=== PATIENT | male | born 1955 | race Caucasian/White ===

== ENCOUNTER 2021-05-25 18:34 | Inpatient (IN) ==
[2021-05-25 20:18] LABS: INR 1.2 (0.86-1.15)
[2021-05-25 20:23] LABS: Hematocrit 33 % (42-52); Hemoglobin 11.2 g/dL (14.0-18.0); Mean Corpuscular HGB Conc 34 g/dL (31-36); Mean Corpuscular Hemoglobin 31 pg (27-31); Mean Corpuscular Volume 91 fL (80-94); Red Blood Count 3.61 10^6 /uL (4.18-5.48); Red Cell Distribution Width 18 % (10-15); White Blood Count 3.2 10^3/uL (3.5-10.8)
[2021-05-25 20:36] LABS: High Sens Troponin Baseline 15 pg/mL (<20)
[2021-05-25 20:40] LABS: ABS Eosinophils 0.2 10^3/ul (0-0.6); ABS Lymphocytes 0.6 10^3/ul (1.0-4.8); ABS Monocytes 0.5 10^3/ul (0-0.8); ABS Neutrophils 1.9 10^3/ul (1.5-7.7); Eosinophil % 5.4 %; Lymphocyte % 17.6 %; Nucleated Red Blood Cells % 0.1; Platelet Count Platelets clumped. 10^3/uL (150-450)
[2021-05-25 21:02] LABS: ALT 23 U/L (7-52); AST 49 U/L (13-39); Albumin/Globulin Ratio 1.2 (1-3); Alcohol, S < 13 mg/dL (<13); Alkaline Phosphatase 99 U/L (35-149); Anion Gap 7 mmol/L (2-11); Blood Urea Nitrogen 71 mg/dL (6-24); CO2 Carbon Dioxide 33 mmol/L (22-32); Calcium 9.4 mg/dL (8.6-10.3); Chloride 98 mmol/L (101-111); Globulin 3.4 g/dL (2-4); Glucose 117 mg/dL (70-100); Potassium 4.1 mmol/L (3.5-5.0); Sodium 138 mmol/L (135-145); Total Protein 7.4 g/dL (6.4-8.9); eGFR CKD-EPI 19.7 (>60)
[2021-05-25 21:05] LABS: Urine Appearance Clear; Urine Bilirubin Negative (Negative); Urine Blood Negative (Negative); Urine Color Yellow; Urine Glucose Negative (Negative); Urine Ketones Negative (Negative); Urine Nitrite Negative (Negative); Urine Protein Negative (Negative); Urine Urobilinogen Negative (Negative)
[2021-05-25 21:33] LABS: High Sensitivity Troponin 1 Hr 14 pg/mL (<20)
[2021-05-25] MEDS: Lactated Ringers 1000 ml BAG 1,000 ML IV SCH ×2 (22:38→23:42)
[2021-05-26 03:27] LABS: Blood Urea Nitrogen 66 mg/dL (6-24); CO2 Carbon Dioxide 32 mmol/L (22-32); Calcium 9.1 mg/dL (8.6-10.3); Chloride 101 mmol/L (101-111); Glucose 61 mg/dL (70-100); Sodium 139 mmol/L (135-145); eGFR CKD-EPI 23.7 (>60)
[2021-05-26 03:30] LABS: Anion Gap 6 mmol/L (2-11)
[2021-05-26] MEDS ORDERED: Lactulose 30 ml UDC PO ONE (04:53)
[2021-05-26] MEDS ORDERED: Ondansetron 4 mg VIAL 2 MG/ML 2 ml VIAL IV PRN (05:21)
[2021-05-26] MEDS ORDERED: NS 0.9% 1000 ml BAG 1,000 ML IV SCH ×2 (05:30→17:50)
[2021-05-26] MEDS ORDERED: Albuterol HFA INHALER 8 gm MDI INH PRN (05:34)
[2021-05-26] MEDS ORDERED: Dextrose 50% Syringe 50 ml 25 GM/50 ML SYRINGE IV PUSH PRN (05:55)
[2021-05-26] MEDS ORDERED: Dextrose 50% VIAL 50 ml IV ONE (05:57)
[2021-05-26] MEDS: Lactulose 30 ml UDC PO SCH ×5 (08:16→22:35)
[2021-05-26] MEDS: Timolol 0.5% OPTH.SOL BTL BOTH EYES SCH (08:17)
[2021-05-26] MEDS: Venlafaxine XR 75 mg PO SCH (08:19)
[2021-05-26 10:09] LABS: Hematocrit 31 % (42-52); Hemoglobin 10.6 g/dL (14.0-18.0); Mean Corpuscular HGB Conc 34 g/dL (31-36); Mean Corpuscular Hemoglobin 31 pg (27-31); Mean Corpuscular Volume 90 fL (80-94); Red Blood Count 3.44 10^6 /uL (4.18-5.48); Red Cell Distribution Width 18 % (10-15)
[2021-05-26 10:23] LABS: INR 1.22 (0.86-1.15)
[2021-05-26 10:35] LABS: ABS Eosinophils 0.2 10^3/ul (0-0.6); ABS Lymphocytes 0.5 10^3/ul (1.0-4.8); ABS Monocytes 0.5 10^3/ul (0-0.8); ABS Neutrophils 1.9 10^3/ul (1.5-7.7); Eosinophil % 5.6 %; Lymphocyte % 15.4 %; Mean Platelet Volume 9.5 fL (7.4-10.4); Platelet Count 36 10^3/uL (150-450)
[2021-05-26 10:46] LABS: Calcium 9.6 mg/dL (8.6-10.3); Potassium 4.3 mmol/L (3.5-5.0); eGFR CKD-EPI 26.4 (>60)
[2021-05-26] MEDS: Insulin GLARGINE 100 un/ml 10 ml VIAL SUBCUT SCH (22:31)
[2021-05-27] MEDS: Lactulose 30 ml UDC PO SCH ×6 (02:02→21:11)
[2021-05-27 05:32] LABS: ABS Eosinophils 0.1 10^3/ul (0-0.6); ABS Lymphocytes 0.4 10^3/ul (1.0-4.8); ABS Monocytes 0.5 10^3/ul (0-0.8); ABS Neutrophils 2.2 10^3/ul (1.5-7.7); Eosinophil % 4.2 %; Hematocrit 31 % (42-52); Hemoglobin 10.4 g/dL (14.0-18.0); Lymphocyte % 13.1 %; Mean Corpuscular HGB Conc 34 g/dL (31-36); Mean Corpuscular Hemoglobin 31 pg (27-31); Mean Corpuscular Volume 91 fL (80-94); Mean Platelet Volume 8.8 fL (7.4-10.4); Nucleated Red Blood Cells % 0.1; Platelet Count 34 10^3/uL (150-450); Red Blood Count 3.38 10^6 /uL (4.18-5.48); Red Cell Distribution Width 18 % (10-15); White Blood Count 3.4 10^3/uL (3.5-10.8)
[2021-05-27 06:13] LABS: ALT 22 U/L (7-52); AST 46 U/L (13-39); Albumin 3.7 g/dL (3.2-5.2); Albumin/Globulin Ratio 1.1 (1-3); Alkaline Phosphatase 89 U/L (35-149); Anion Gap 7 mmol/L (2-11); Blood Urea Nitrogen 52 mg/dL (6-24); CO2 Carbon Dioxide 28 mmol/L (22-32); Calcium 9.4 mg/dL (8.6-10.3); Chloride 106 mmol/L (101-111); Globulin 3.3 g/dL (2-4); Glucose 110 mg/dL (70-100); Potassium 3.9 mmol/L (3.5-5.0); Sodium 141 mmol/L (135-145); eGFR CKD-EPI 34.5 (>60)
[2021-05-27] MEDS: Venlafaxine XR 75 mg PO SCH (09:03)
[2021-05-27] MEDS: Insulin GLARGINE 100 un/ml 10 ml VIAL SUBCUT SCH ×2 (09:05→21:33)
[2021-05-27] MEDS: Timolol 0.5% OPTH.SOL BTL BOTH EYES SCH (09:05)
[2021-05-27] MEDS: Albumin Human 5% 12.5 GM/250 ML BTL IV SCH ×2 (11:35→13:00)
[2021-05-27 13:51] LABS: % Iron Saturation 39 % (15-55); Iron 113 ug/dL (50-212); Total Iron Binding Capacity 287 mcg/dL (250-450); Transferrin 205 mg/dL (203-362); Unsaturated Iron Binding 174 ug/dL
[2021-05-27 14:08] LABS: Ferritin 316.4 ng/mL (24-336)
[2021-05-27 14:11] LABS: Folate > 20.00 ng/mL (5.90-24.80)
[2021-05-27 14:13] LABS: Vitamin B12 1337 pg/mL (180-914)
[2021-05-27 17:15] LABS: Calcium 9.6 mg/dL (8.6-10.3); Potassium 3.9 mmol/L (3.5-5.0); eGFR CKD-EPI 39.7 (>60)
[2021-05-27] MEDS: NS 0.9% 1000 ml BAG 1,000 ML IV SCH (21:11)
[2021-05-28] MEDS: Lactulose 30 ml UDC PO SCH ×11 (02:22→21:59)
[2021-05-28] MEDS: NS 0.9% 1000 ml BAG 1,000 ML IV SCH (03:15)
[2021-05-28 05:55] LABS: ABS Eosinophils 0.1 10^3/ul (0-0.6); ABS Lymphocytes 0.4 10^3/ul (1.0-4.8); ABS Monocytes 0.7 10^3/ul (0-0.8); ABS Neutrophils 2.7 10^3/ul (1.5-7.7); Eosinophil % 3.7 %; Hematocrit 30 % (42-52); Hemoglobin 10.5 g/dL (14.0-18.0); Lymphocyte % 10.9 %; Mean Corpuscular HGB Conc 34 g/dL (31-36); Mean Corpuscular Hemoglobin 32 pg (27-31); Mean Corpuscular Volume 91 fL (80-94); Mean Platelet Volume 9.5 fL (7.4-10.4); Nucleated Red Blood Cells % 0.1; Platelet Count 31 10^3/uL (150-450); Red Blood Count 3.32 10^6 /uL (4.18-5.48); Red Cell Distribution Width 18 % (10-15)
[2021-05-28 06:08] LABS: Calcium 9.4 mg/dL (8.6-10.3); Potassium 3.9 mmol/L (3.5-5.0)
[2021-05-28] MEDS ORDERED: Lactated Ringers 1000 ml BAG 1,000 ML IV SCH (07:00)
[2021-05-28] MEDS: Venlafaxine XR 75 mg PO SCH (07:56)
[2021-05-28] MEDS: Albumin Human 5% 12.5 GM/250 ML BTL IV SCH ×2 (07:57→10:39)
[2021-05-28] MEDS: Insulin GLARGINE 100 un/ml 10 ml VIAL SUBCUT SCH ×2 (08:28→20:26)
[2021-05-28] MEDS: Timolol 0.5% OPTH.SOL BTL BOTH EYES SCH (09:40)
[2021-05-28 15:13] LABS: Calcium 9.7 mg/dL (8.6-10.3); Potassium 4.1 mmol/L (3.5-5.0); eGFR CKD-EPI 58.8 (>60)
[2021-05-29] MEDS: Lactulose 30 ml UDC PO SCH ×8 (00:19→14:55)
[2021-05-29 07:14] LABS: ABS Eosinophils 0.2 10^3/ul (0-0.6); ABS Lymphocytes 0.5 10^3/ul (1.0-4.8); ABS Monocytes 0.8 10^3/ul (0-0.8); ABS Neutrophils 3.3 10^3/ul (1.5-7.7); Albumin 4.5 g/dL (3.2-5.2); Albumin/Globulin Ratio 1.3 (1-3); Calcium 10.4 mg/dL (8.6-10.3); Eosinophil % 4.5 %; Globulin 3.5 g/dL (2-4); Hematocrit 34 % (42-52); Hemoglobin 11.5 g/dL (14.0-18.0); Lymphocyte % 10.8 %; Mean Corpuscular HGB Conc 34 g/dL (31-36); Mean Corpuscular Hemoglobin 31 pg (27-31); Mean Corpuscular Volume 92 fL (80-94); Mean Platelet Volume 9.6 fL (7.4-10.4); Nucleated Red Blood Cells % 0.1; Platelet Count 38 10^3/uL (150-450); Potassium 3.8 mmol/L (3.5-5.0); Red Cell Distribution Width 18 % (10-15); Total Bilirubin 2.9 mg/dL (0.2-1.0); White Blood Count 4.9 10^3/uL (3.5-10.8); eGFR CKD-EPI 71.4 (>60)
[2021-05-29] MEDS: Venlafaxine XR 75 mg PO SCH (08:29)
[2021-05-29] MEDS: Insulin GLARGINE 100 un/ml 10 ml VIAL SUBCUT SCH ×2 (08:30→20:57)
[2021-05-29] MEDS: Timolol 0.5% OPTH.SOL BTL BOTH EYES SCH (08:30)
[2021-05-29] MEDS ORDERED: D5W 500 ml BAG 500 ML IV SCH (09:00)
[2021-05-29] MEDS ORDERED: D5W 1/2 NS 1000 ml BAG 1,000 ML IV SCH (09:00)
[2021-05-29 14:50] LABS: Calcium 10.3 mg/dL (8.6-10.3); Potassium 3.9 mmol/L (3.5-5.0); eGFR CKD-EPI 69.2 (>60)
[2021-05-29] MEDS ORDERED: D5W IV ONE (17:12)
[2021-05-29 21:30] LABS: Calcium 10.7 mg/dL (8.6-10.3); Potassium 3.8 mmol/L (3.5-5.0); eGFR CKD-EPI 69.9 (>60)
[2021-05-30] MEDS ORDERED: D5W 1000 ml BAG 1,000 ML IV SCH (01:00)
[2021-05-30 06:56] LABS: Hematocrit 37 % (42-52); Hemoglobin 12.3 g/dL (14.0-18.0); Mean Corpuscular HGB Conc 34 g/dL (31-36); Mean Corpuscular Hemoglobin 31 pg (27-31); Mean Corpuscular Volume 93 fL (80-94); Mean Platelet Volume 9.1 fL (7.4-10.4); Platelet Count 41 10^3/uL (150-450); Red Blood Count 3.94 10^6 /uL (4.18-5.48); Red Cell Distribution Width 18 % (10-15); White Blood Count 5.3 10^3/uL (3.5-10.8)
[2021-05-30 07:18] LABS: Calcium 10.2 mg/dL (8.6-10.3); Potassium 4.3 mmol/L (3.5-5.0)
[2021-05-30 07:24] LABS: eGFR CKD-EPI 70.6 (>60)
[2021-05-30] MEDS: Insulin GLARGINE 100 un/ml 10 ml VIAL SUBCUT SCH ×2 (08:41→21:18)
[2021-05-30] MEDS: Timolol 0.5% OPTH.SOL BTL BOTH EYES SCH (08:44)
[2021-05-30] MEDS: Venlafaxine XR 75 mg PO SCH (08:44)
[2021-05-30 12:01] LABS: Potassium 3.7 mmol/L (3.5-5.0)
[2021-05-30 12:06] LABS: eGFR CKD-EPI 70.6 (>60)
[2021-05-30 16:27] LABS: Calcium 10.1 mg/dL (8.6-10.3); Potassium 3.7 mmol/L (3.5-5.0); eGFR CKD-EPI 69.9 (>60)
[2021-05-30] MEDS ORDERED: D5W 1000 ml BAG 1,000 ML IV ONE (19:51)
[2021-05-30 22:17] LABS: Potassium 3.9 mmol/L (3.5-5.0); eGFR CKD-EPI 67.1 (>60)
[2021-05-31 06:16] LABS: Hematocrit 32 % (42-52); Hemoglobin 10.7 g/dL (14.0-18.0); Mean Corpuscular HGB Conc 34 g/dL (31-36); Mean Corpuscular Hemoglobin 31 pg (27-31); Mean Corpuscular Volume 91 fL (80-94); Mean Platelet Volume 8.6 fL (7.4-10.4); Platelet Count 41 10^3/uL (150-450); Red Blood Count 3.52 10^6 /uL (4.18-5.48); Red Cell Distribution Width 18 % (10-15)
[2021-05-31 07:01] LABS: Calcium 9.4 mg/dL (8.6-10.3); Potassium 3.5 mmol/L (3.5-5.0); eGFR CKD-EPI 73.7 (>60)
[2021-05-31] MEDS: Venlafaxine XR 75 mg PO SCH (08:12)
[2021-05-31] MEDS: Timolol 0.5% OPTH.SOL BTL BOTH EYES SCH (08:13)
[2021-05-31] MEDS: Insulin GLARGINE 100 un/ml 10 ml VIAL SUBCUT SCH (08:13)
[2021-05-31 10:34] LABS: Rapid COVID-19 Molecular Undetected (Undetected)
[2021-05-31 10:58] VITALS: BP 106/39
[2021-05-31] MEDS ORDERED: Lactulose 30 ml UDC PO SCH (12:00)
== END 2021-05-31 12:00 | DRG 441 ==
LOC: ED 18:34 → EDHOLD 05-26 05:21 → SUATTDRO 05-26 05:21 → EDHOLD 05-26 13:49 → MED 05-26 14:34
PROVIDERS: ADMIT Internal Medicine; ATTEND Internal Medicine

== ENCOUNTER 2021-10-07 16:03 | Inpatient (IN) ==
[2021-10-07 18:34] LABS: ABS Eosinophils 0.1 10^3/ul (0-0.6); ABS Lymphocytes 0.7 10^3/ul (1.0-4.8); ABS Monocytes 0.6 10^3/ul (0-0.8); ABS Neutrophils 2.5 10^3/ul (1.5-7.7); Eosinophil % 3.7 %; Hematocrit 33 % (42-52); Hemoglobin 11.8 g/dL (14.0-18.0); Lymphocyte % 17.4 %; Mean Corpuscular HGB Conc 36 g/dL (31-36); Mean Corpuscular Hemoglobin 34 pg (27-31); Mean Corpuscular Volume 95 fL (80-94); Mean Platelet Volume 9.1 fL (7.4-10.4); Nucleated Red Blood Cells % 0.1; Platelet Count 43 10^3/uL (150-450); Red Cell Distribution Width 16 % (10-15); White Blood Count 3.9 10^3/uL (3.5-10.8)
[2021-10-07 18:46] LABS: Activated Partial Thrombo Time 34.1 seconds (26.0-38.0); INR 1.29 (0.89-1.11)
[2021-10-07] MEDS ORDERED: Lactulose 300 ML for PR 200 GM/300 ML BTL PR ONE (19:31)
[2021-10-07] MEDS: Lactulose 30 ml UDC PO ONE ×2 (19:43→21:00)
[2021-10-07 19:57] LABS: High Sensitivity Troponin 1 Hr 26 pg/mL (<20)
[2021-10-07 20:08] LABS: Albumin 3.6 g/dL (3.2-5.2); Calcium 9.7 mg/dL (8.6-10.3); Potassium 3.6 mmol/L (3.5-5.0); Total Bilirubin 2.4 mg/dL (0.2-1.0)
[2021-10-07 20:14] LABS: Albumin/Globulin Ratio 0.9 (1-3); C Reactive Protein 7.27 mg/L (<8.01); Globulin 3.9 g/dL (2-4); Total Protein 7.5 g/dL (6.4-8.9); eGFR CKD-EPI 33.7 (>60)
[2021-10-07] MEDS ORDERED: Albuterol HFA INHALER 8 gm MDI INH PRN (21:21)
[2021-10-07 21:31] LABS: Direct Bilirubin 0.8 mg/dL (0.03-0.18); Indirect Bilirubin 1.6 mg/dL (0.3-1.0)
[2021-10-07] MEDS ORDERED: Dextrose 50% Syringe 50 ml 25 GM/50 ML SYRINGE IV PUSH PRN (22:12)
[2021-10-07] MEDS ORDERED: NS 0.9% 1000 ml BAG 1,000 ML IV SCH (22:15)
[2021-10-08] MEDS: Lactulose 30 ml UDC PO SCH ×2 (03:00→09:14)
[2021-10-08] MEDS ORDERED: Venlafaxine 75 mg CAP (NF) PO SCH (09:00)
[2021-10-08] MEDS: Venlafaxine XR 75 mg PO SCH (09:13)
[2021-10-08 09:49] LABS: ABS Eosinophils 0.1 10^3/ul (0-0.6); ABS Lymphocytes 0.7 10^3/ul (1.0-4.8); ABS Monocytes 0.7 10^3/ul (0-0.8); ABS Neutrophils 2.4 10^3/ul (1.5-7.7); Eosinophil % 3.5 %; Hematocrit 32 % (42-52); Hemoglobin 10.8 g/dL (14.0-18.0); Lymphocyte % 18.1 %; Mean Corpuscular HGB Conc 34 g/dL (31-36); Mean Corpuscular Hemoglobin 32 pg (27-31); Mean Corpuscular Volume 94 fL (80-94); Mean Platelet Volume 9.2 fL (7.4-10.4); Nucleated Red Blood Cells % 0.1; Platelet Count 39 10^3/uL (150-450); Red Cell Distribution Width 15 % (10-15); White Blood Count 3.9 10^3/uL (3.5-10.8)
[2021-10-08 10:14] LABS: Calcium 9.3 mg/dL (8.6-10.3); Potassium 3.6 mmol/L (3.5-5.0)
[2021-10-08 10:20] LABS: eGFR CKD-EPI 37.9 (>60)
[2021-10-08] MEDS: Lactated Ringers 1000 ml BAG 1,000 ML IV SCH (18:00)
[2021-10-09] MEDS: Lactated Ringers 1000 ml BAG 1,000 ML IV SCH ×2 (01:17→08:45)
[2021-10-09 07:10] LABS: Albumin 3.3 g/dL (3.2-5.2); Calcium 8.9 mg/dL (8.6-10.3); Globulin 3.3 g/dL (2-4); Potassium 3.5 mmol/L (3.5-5.0); Total Bilirubin 2.2 mg/dL (0.2-1.0); Total Protein 6.6 g/dL (6.4-8.9); eGFR CKD-EPI 42.1 (>60)
[2021-10-09 08:17] LABS: ABS Eosinophils 0.1 10^3/ul (0-0.6); ABS Lymphocytes 0.6 10^3/ul (1.0-4.8); ABS Monocytes 0.6 10^3/ul (0-0.8); ABS Neutrophils 2.3 10^3/ul (1.5-7.7); Hematocrit 30 % (42-52); Hemoglobin 10.1 g/dL (14.0-18.0); Lymphocyte % 15.6 %; Mean Corpuscular HGB Conc 34 g/dL (31-36); Mean Corpuscular Hemoglobin 32 pg (27-31); Mean Corpuscular Volume 94 fL (80-94); Nucleated Red Blood Cells % 0.1; Platelet Count 37 10^3/uL (150-450); Red Blood Count 3.21 10^6 /uL (4.18-5.48); Red Cell Distribution Width 15 % (10-15); White Blood Count 3.6 10^3/uL (3.5-10.8)
[2021-10-09] MEDS: Venlafaxine XR 75 mg PO SCH (08:45)
[2021-10-09] MEDS ORDERED: Lactulose 30 ml UDC PO SCH (17:00)
[2021-10-09] MEDS: Lactulose 30 ml UDC PO SCH ×2 (17:25→23:15)
[2021-10-10] MEDS: Lactated Ringers 1000 ml BAG 1,000 ML IV SCH (00:54)
[2021-10-10 05:39] LABS: ABS Eosinophils 0.1 10^3/ul (0-0.6); ABS Lymphocytes 0.5 10^3/ul (1.0-4.8); ABS Monocytes 0.4 10^3/ul (0-0.8); ABS Neutrophils 2.1 10^3/ul (1.5-7.7); Hematocrit 27 % (42-52); Hemoglobin 9.4 g/dL (14.0-18.0); Lymphocyte % 15.2 %; Mean Corpuscular HGB Conc 35 g/dL (31-36); Mean Corpuscular Hemoglobin 32 pg (27-31); Mean Corpuscular Volume 93 fL (80-94); Mean Platelet Volume 9.1 fL (7.4-10.4); Nucleated Red Blood Cells % 0.1; Platelet Count 33 10^3/uL (150-450); Red Blood Count 2.91 10^6 /uL (4.18-5.48); Red Cell Distribution Width 15 % (10-15); White Blood Count 3.1 10^3/uL (3.5-10.8)
[2021-10-10 05:42] LABS: Albumin 3.2 g/dL (3.2-5.2); Albumin/Globulin Ratio 1.1 (1-3); Calcium 8.8 mg/dL (8.6-10.3); Globulin 2.9 g/dL (2-4); Potassium 3.3 mmol/L (3.5-5.0); Total Bilirubin 1.8 mg/dL (0.2-1.0); Total Protein 6.1 g/dL (6.4-8.9); eGFR CKD-EPI 55.8 (>60)
[2021-10-10] MEDS: Lactulose 30 ml UDC PO SCH ×3 (06:01→17:51)
[2021-10-10] MEDS ORDERED: Potassium Chlor 20 meq TAB.ER PO ONE (06:57)
[2021-10-10 08:09] LABS: Magnesium 1.6 mg/dL (1.9-2.7)
[2021-10-10 08:56] LABS: INR 1.37 (0.89-1.11)
[2021-10-10] MEDS: Venlafaxine XR 75 mg PO SCH (10:05)
[2021-10-10] MEDS ORDERED: Magnesium Sulfate IV 1GM/100ML 1 GM/100 ML BAG IV ONE (13:03)
[2021-10-10] MEDS ORDERED: Magnesium Sulf 4 GM/100 ML IV 4,000 MG/100 ML BAG IVPB ONE (13:15)
[2021-10-10] MEDS ORDERED: Lactated Ringers 1000 ml BAG 1,000 ML IV ONE (13:46)
[2021-10-10 16:42] LABS: Urine Appearance Clear; Urine Bilirubin Negative (Negative); Urine Blood Trace (Intact) (Negative); Urine Color Yellow; Urine Glucose Trace (100mg/dL) (Negative); Urine Ketones Trace (Negative); Urine Protein Negative (Negative); Urine Urobilinogen 0.2 (Negative) (Negative); Urine pH 5.5 (5.0-9.0)
[2021-10-10 16:43] LABS: Urine Nitrite Negative (Negative)
[2021-10-10 16:53] LABS: Urine Bacteria Absent (Absent); Urine Red Blood Cell Trace(0-2/hpf) (Absent); Urine Squamous Epithelial Cell Present (Absent); Urine White Blood Cell 3+(>20/hpf) (Absent)
[2021-10-10 17:47] LABS: Calcium 8.7 mg/dL (8.6-10.3); Magnesium 1.9 mg/dL (1.9-2.7); Potassium 3.4 mmol/L (3.5-5.0); eGFR CKD-EPI 58.8 (>60)
[2021-10-11] MEDS: Lactulose 30 ml UDC PO SCH ×5 (00:05→23:36)
[2021-10-11 07:23] LABS: Albumin 3.1 g/dL (3.2-5.2); Albumin/Globulin Ratio 1.1 (1-3); Calcium 8.9 mg/dL (8.6-10.3); Globulin 2.8 g/dL (2-4); Magnesium 1.8 mg/dL (1.9-2.7); Potassium 3.9 mmol/L (3.5-5.0); Total Bilirubin 1.6 mg/dL (0.2-1.0); Total Protein 5.9 g/dL (6.4-8.9); eGFR CKD-EPI 63.9 (>60)
[2021-10-11 07:27] LABS: INR 1.41 (0.89-1.11)
[2021-10-11] MEDS: Venlafaxine XR 75 mg PO SCH (08:16)
[2021-10-11 09:34] LABS: ABS Eosinophils 0.1 10^3/ul (0-0.6); ABS Lymphocytes 0.5 10^3/ul (1.0-4.8); ABS Monocytes 0.4 10^3/ul (0-0.8); Eosinophil % 3.7 %; Hematocrit 25 % (42-52); Hemoglobin 9.5 g/dL (14.0-18.0); Lymphocyte % 15.1 %; Mean Corpuscular HGB Conc 37 g/dL (31-36); Mean Corpuscular Hemoglobin 35 pg (27-31); Mean Corpuscular Volume 94 fL (80-94); Mean Platelet Volume 9.2 fL (7.4-10.4); Platelet Count 33 10^3/uL (150-450); Red Blood Count 2.71 10^6 /uL (4.18-5.48); Red Cell Distribution Width 15 % (10-15)
[2021-10-12] MEDS: Lactulose 30 ml UDC PO SCH ×4 (05:27→23:04)
[2021-10-12 07:36] LABS: ABS Eosinophils 0.1 10^3/ul (0-0.6); ABS Lymphocytes 0.5 10^3/ul (1.0-4.8); ABS Monocytes 0.4 10^3/ul (0-0.8); ABS Neutrophils 2.2 10^3/ul (1.5-7.7); Eosinophil % 3.3 %; Hematocrit 27 % (42-52); Hemoglobin 9.5 g/dL (14.0-18.0); Lymphocyte % 14.7 %; Mean Corpuscular HGB Conc 35 g/dL (31-36); Mean Corpuscular Hemoglobin 33 pg (27-31); Mean Corpuscular Volume 93 fL (80-94); Mean Platelet Volume 9.3 fL (7.4-10.4); Platelet Count 35 10^3/uL (150-450); Red Blood Count 2.88 10^6 /uL (4.18-5.48); Red Cell Distribution Width 15 % (10-15); White Blood Count 3.2 10^3/uL (3.5-10.8)
[2021-10-12 07:46] LABS: INR 1.31 (0.89-1.11)
[2021-10-12 07:53] LABS: Albumin 3.3 g/dL (3.2-5.2); Albumin/Globulin Ratio 1.1 (1-3); Calcium 9.1 mg/dL (8.6-10.3); Potassium 3.7 mmol/L (3.5-5.0); Total Bilirubin 1.7 mg/dL (0.2-1.0); Total Protein 6.3 g/dL (6.4-8.9); eGFR CKD-EPI 66.4 (>60)
[2021-10-12] MEDS: Venlafaxine XR 75 mg PO SCH (09:38)
[2021-10-12 15:31] LABS: Folate 14.54 ng/mL (5.90-24.80)
[2021-10-12] MEDS ORDERED: Potassium Chlor 10 meq TAB PO ONE (16:58)
[2021-10-13] MEDS: Lactulose 30 ml UDC PO SCH ×4 (05:32→23:30)
[2021-10-13 05:42] LABS: ABS Eosinophils 0.1 10^3/ul (0-0.6); ABS Lymphocytes 0.4 10^3/ul (1.0-4.8); ABS Monocytes 0.4 10^3/ul (0-0.8); Eosinophil % 4.1 %; Hematocrit 27 % (42-52); Hemoglobin 9.2 g/dL (14.0-18.0); Lymphocyte % 14.8 %; Mean Corpuscular HGB Conc 35 g/dL (31-36); Mean Corpuscular Hemoglobin 32 pg (27-31); Mean Corpuscular Volume 93 fL (80-94); Mean Platelet Volume 8.7 fL (7.4-10.4); Nucleated Red Blood Cells % 0.1; Platelet Count 36 10^3/uL (150-450); Red Blood Count 2.85 10^6 /uL (4.18-5.48); Red Cell Distribution Width 15 % (10-15); White Blood Count 2.9 10^3/uL (3.5-10.8)
[2021-10-13 05:44] LABS: INR 1.33 (0.89-1.11)
[2021-10-13 06:08] LABS: Albumin 3.1 g/dL (3.2-5.2); Albumin/Globulin Ratio 1.1 (1-3); Calcium 8.6 mg/dL (8.6-10.3); Globulin 2.8 g/dL (2-4); Magnesium 1.6 mg/dL (1.9-2.7); Potassium 3.6 mmol/L (3.5-5.0); Total Protein 5.9 g/dL (6.4-8.9); eGFR CKD-EPI 77.9 (>60)
[2021-10-13] MEDS: Venlafaxine XR 75 mg PO SCH (08:44)
[2021-10-13] MEDS ORDERED: Magnesium Sulf 4 GM/100 ML IV 4,000 MG/100 ML BAG IVPB ONE (11:28)
[2021-10-14] MEDS: Lactulose 30 ml UDC PO SCH ×2 (05:39→12:30)
[2021-10-14 06:37] LABS: ABS Eosinophils 0.1 10^3/ul (0-0.6); ABS Lymphocytes 0.5 10^3/ul (1.0-4.8); ABS Monocytes 0.5 10^3/ul (0-0.8); ABS Neutrophils 2.2 10^3/ul (1.5-7.7); Eosinophil % 4.2 %; Hematocrit 27 % (42-52); Hemoglobin 9.2 g/dL (14.0-18.0); Lymphocyte % 14.5 %; Mean Corpuscular HGB Conc 34 g/dL (31-36); Mean Corpuscular Hemoglobin 32 pg (27-31); Mean Corpuscular Volume 94 fL (80-94); Mean Platelet Volume 8.5 fL (7.4-10.4); Nucleated Red Blood Cells % 0.1; Platelet Count 38 10^3/uL (150-450); Red Blood Count 2.87 10^6 /uL (4.18-5.48); Red Cell Distribution Width 15 % (10-15); White Blood Count 3.3 10^3/uL (3.5-10.8)
[2021-10-14 06:49] LABS: Calcium 8.8 mg/dL (8.6-10.3); Magnesium 2.2 mg/dL (1.9-2.7); Phosphorus 2.9 mg/dL (2.5-5.0); Potassium 3.6 mmol/L (3.5-5.0); eGFR CKD-EPI 70.6 (>60)
[2021-10-14] MEDS: Venlafaxine XR 75 mg PO SCH (07:59)
[2021-10-14 12:41] VITALS: BP 93/50
== END 2021-10-14 16:25 | DRG 442 ==
LOC: ED 16:03 → EDHOLD 20:37 → SUATTDRO 20:37 → MED 10-08 01:09
PROVIDERS: ADMIT Student in an Organized Health Care Education/Training Program; ATTEND Internal Medicine

== ENCOUNTER 2023-02-01 13:33 | Inpatient (IN) ==
[2023-02-01 15:11] LABS: ABS Basophils 0.1 10^3/uL (0.0-0.1); ABS Eosinophils 0.2 10^3/uL (0.0-0.5); ABS Monocytes 1.2 10^3/uL (0.0-1.1); ABS Neutrophils 6.1 10^3/uL (1.5-7.6); ABS Nucleated RBC 0.01 10^3/ul; Eosinophil % 2.1 %; Hematocrit 28.3 % (38-53); Hemoglobin 9.7 g/dL (13.2-16.3); Lymphocyte % 11.3 %; Mean Corpuscular Hemoglobin 31.6 pg (27-33); Mean Corpuscular Hgb Conc 34.2 g/dL (31-36); Mean Corpuscular Volume 92.4 fL (80-97); Mean Platelet Volume 8.8 fL (7.5-11.2); Nucleated Red Blood Cells % 0.1 %/100WBC (0.0-0.8); Platelet Count 136 10^3/uL (150-450); Red Blood Count 3.07 10^6/uL (4.06-5.63); Red Cell Distribution Width 17.3 % (12-17); White Blood Count 8.6 10^3/uL (3.6-10.2)
[2023-02-01 15:40] LABS: High Sensitivity Troponin 1 Hr 9 pg/mL (<20)
[2023-02-01 15:53] LABS: Albumin 3.4 g/dL (3.2-5.2); Albumin/Globulin Ratio 0.9 (1-3); Calcium 9.2 mg/dL (8.6-10.3); Creatinine, Serum 1.31 mg/dL (0.67-1.17); Direct Bilirubin 0.7 mg/dL (0.03-0.18); Globulin 3.6 g/dL (2-4); Indirect Bilirubin 1.8 mg/dL (0.3-1.0); Potassium 3.7 mmol/L (3.5-5.0); Total Bilirubin 2.5 mg/dL (0.2-1.0)
[2023-02-01 17:55] LABS: Urine Appearance Clear; Urine Bilirubin Negative (Negative); Urine Blood Negative (Negative); Urine Color Yellow; Urine Glucose 3+(>=500 mg/dL) (Negative); Urine Ketones Negative (Negative); Urine Nitrite Negative (Negative); Urine Protein Negative (Negative); Urine Specific Gravity 1.011 (1.002-1.030); Urine Urobilinogen Positive (Negative)
[2023-02-01] MEDS ORDERED: Lactated Ringers 1000 ml BAG 1,000 ML IV ONE (18:15)
[2023-02-01] MEDS ORDERED: Lactulose 300 ML for PR 200 GM/300 ML BTL PR ONE (19:41)
[2023-02-01] MEDS ORDERED: Lactulose 30 ml UDC PO SCH (21:00)
[2023-02-01] MEDS ORDERED: Lactated Ringers 1000 ml BAG 1,000 ML IV SCH (22:00)
[2023-02-01] MEDS ORDERED: Dextrose 50% Syringe 50 ml 25 GM/50 ML SYRINGE IV PUSH PRN (22:07)
[2023-02-01] MEDS ORDERED: KCL 20 MEQ/100 ML IVPREMIX 20 MEQ/100 ML BAG IV ONE (23:21)
[2023-02-02] MEDS ORDERED: Albuterol HFA INHALER 8 gm MDI INH PRN (00:10)
[2023-02-02] MEDS: Enoxaparin 40 MG/0.4 ML SYR SUBCUT SCH ×2 (00:21→22:37)
[2023-02-02] MEDS: Timolol 0.5% OPTH.SOL BTL BOTH EYES SCH ×2 (00:23→11:38)
[2023-02-02 00:40] LABS: Magnesium 2.4 mg/dL (1.9-2.7)
[2023-02-02 01:40] LABS: Ferritin 24.3 ng/mL (24-336)
[2023-02-02 02:06] LABS: INR 1.53 (0.83-1.13)
[2023-02-02] MEDS ORDERED: Lactated Ringers 1000 ml BAG 1,000 ML IV SCH ×2 (03:29→03:48)
[2023-02-02 06:07] LABS: ABS Basophils 0.1 10^3/uL (0.0-0.1); ABS Eosinophils 0.2 10^3/uL (0.0-0.5); ABS Lymphocytes 0.9 10^3/uL (1.0-4.8); ABS Neutrophils 4.6 10^3/uL (1.5-7.6); ABS Nucleated RBC 0.01 10^3/ul; Eosinophil % 2.6 %; Hematocrit 26.4 % (38-53); Mean Corpuscular Hemoglobin 31.5 pg (27-33); Mean Corpuscular Volume 92.6 fL (80-97); Mean Platelet Volume 8.2 fL (7.5-11.2); Nucleated Red Blood Cells % 0.1 %/100WBC (0.0-0.8); Platelet Count 101 10^3/uL (150-450); Red Blood Count 2.85 10^6/uL (4.06-5.63); White Blood Count 6.8 10^3/uL (3.6-10.2)
[2023-02-02 06:22] LABS: Albumin 3.1 g/dL (3.2-5.2); Albumin/Globulin Ratio 0.9 (1-3); Calcium 8.8 mg/dL (8.6-10.3); Creatinine, Serum 1.18 mg/dL (0.67-1.17); Globulin 3.3 g/dL (2-4); Potassium 3.6 mmol/L (3.5-5.0); Total Bilirubin 2.2 mg/dL (0.2-1.0); Total Protein 6.4 g/dL (6.4-8.9); eGFR CKD-EPI 68.1 (>60)
[2023-02-02 06:31] LABS: INR 1.51 (0.83-1.13)
[2023-02-02] MEDS ORDERED: Venlafaxine 75 mg CAP (NF) PO SCH (09:00)
[2023-02-02] MEDS ORDERED: Insulin GLARGINE 100 un/ml 10 ml VIAL SUBCUT SCH ×2 (09:00)
[2023-02-02] MEDS ORDERED: Lactulose 300 ML for PR 200 GM/300 ML BTL PR ONE ×2 (10:37→17:20)
[2023-02-02] MEDS ORDERED: D5W 1/2 NS 1000 ml BAG 1,000 ML IV SCH (11:00)
[2023-02-02 11:17] LABS: Urine Osmo 471 mOsm/kg (150-1150)
[2023-02-02] MEDS: Lactulose 30 ml UDC PO SCH ×4 (11:37→23:57)
[2023-02-02] MEDS: PTO:DAPAGLIFLOZIN 10 MG TAB (NF) PO SCH (11:37)
[2023-02-02] MEDS: Dextran 70/Hypromellose Tears Eye Drops 15 ml BTL (for Artificials Tears) BOTH EYES SCH (11:38)
[2023-02-02] MEDS: Venlafaxine XR 75 mg PO SCH (11:38)
[2023-02-02 11:46] LABS: Urine Benzodiazepine Screen None Detected (None Detect); Urine Cannabinoids Screen None Detected (None Detect); Urine Opiates Screen None Detected (None Detect)
[2023-02-02 19:49] LABS: Calcium 8.8 mg/dL (8.6-10.3); Potassium 3.6 mmol/L (3.5-5.0)
[2023-02-02] MEDS: KCL 20 MEQ/100 ML IVPREMIX 20 MEQ/100 ML BAG IV SCH (22:35)
[2023-02-03] MEDS: KCL 20 MEQ/100 ML IVPREMIX 20 MEQ/100 ML BAG IV SCH (01:16)
[2023-02-03 08:08] LABS: Hematocrit 27.2 % (38-53); Mean Corpuscular Hemoglobin 30.9 pg (27-33); Mean Corpuscular Hgb Conc 33.1 g/dL (31-36); Mean Corpuscular Volume 93.5 fL (80-97); Mean Platelet Volume 8.3 fL (7.5-11.2); Platelet Count 98 10^3/uL (150-450); Red Cell Distribution Width 17.2 % (12-17); White Blood Count 6.1 10^3/uL (3.6-10.2)
[2023-02-03 08:16] LABS: INR 1.34 (0.83-1.13)
[2023-02-03 09:19] LABS: Albumin 3.2 g/dL (3.2-5.2); Calcium 8.8 mg/dL (8.6-10.3); Globulin 3.3 g/dL (2-4); Magnesium 2.3 mg/dL (1.9-2.7); Total Bilirubin 2.2 mg/dL (0.2-1.0); Total Protein 6.5 g/dL (6.4-8.9)
[2023-02-03] MEDS ORDERED: D5W 1000 ml BAG 1,000 ML IV SCH (11:00)
[2023-02-03] MEDS: Lactulose 30 ml UDC PO SCH ×4 (11:18→22:07)
[2023-02-03] MEDS: Dextran 70/Hypromellose Tears Eye Drops 15 ml BTL (for Artificials Tears) BOTH EYES SCH (11:23)
[2023-02-03] MEDS: PTO:DAPAGLIFLOZIN 10 MG TAB (NF) PO SCH (11:24)
[2023-02-03] MEDS: Timolol 0.5% OPTH.SOL BTL BOTH EYES SCH (11:24)
[2023-02-03] MEDS: Venlafaxine XR 75 mg PO SCH (11:26)
[2023-02-03 16:33] LABS: Calcium 8.4 mg/dL (8.6-10.3); Creatinine, Serum 1.01 mg/dL (0.67-1.17); Potassium 3.7 mmol/L (3.5-5.0)
[2023-02-03] MEDS: Insulin GLARGINE 100 un/ml 10 ml VIAL SUBCUT SCH (22:07)
[2023-02-03] MEDS: Enoxaparin 40 MG/0.4 ML SYR SUBCUT SCH (22:08)
[2023-02-04 06:52] LABS: Albumin 2.8 g/dL (3.2-5.2); Albumin/Globulin Ratio 0.9 (1-3); Calcium 8.4 mg/dL (8.6-10.3); Creatinine, Serum 0.95 mg/dL (0.67-1.17); Magnesium 2.1 mg/dL (1.9-2.7); Potassium 3.6 mmol/L (3.5-5.0); Total Bilirubin 2.1 mg/dL (0.2-1.0); Total Protein 5.8 g/dL (6.4-8.9); eGFR CKD-EPI 88.3 (>60)
[2023-02-04 07:13] LABS: Hematocrit 22.2 % (38-53); Hemoglobin 7.4 g/dL (13.2-16.3); Mean Corpuscular Hemoglobin 31.1 pg (27-33); Mean Corpuscular Hgb Conc 33.5 g/dL (31-36); Mean Corpuscular Volume 92.8 fL (80-97); Red Blood Count 2.39 10^6/uL (4.06-5.63); White Blood Count 5.1 10^3/uL (3.6-10.2)
[2023-02-04] MEDS ORDERED: Potassium Chlor 20 meq TAB.ER PO ONE (09:12)
[2023-02-04 09:47] LABS: ABS Eosinophils 0.1 10^3/uL (0.0-0.5); ABS Lymphocytes 0.8 10^3/uL (1.0-4.8); ABS Monocytes 0.7 10^3/uL (0.0-1.1); ABS Neutrophils 3.5 10^3/uL (1.5-7.6); Eosinophil % 2.8 %; Mean Platelet Volume 8.3 fL (7.5-11.2); Nucleated Red Blood Cells % 0.1 %/100WBC (0.0-0.8); Platelet Count 75 10^3/uL (150-450)
[2023-02-04 10:38] LABS: C Reactive Protein 7.61 mg/L (<8.01)
[2023-02-04] MEDS: Venlafaxine XR 75 mg PO SCH (11:20)
[2023-02-04] MEDS: Timolol 0.5% OPTH.SOL BTL BOTH EYES SCH (11:21)
[2023-02-04] MEDS: Lactulose 30 ml UDC PO SCH ×4 (11:21→22:01)
[2023-02-04] MEDS: Dextran 70/Hypromellose Tears Eye Drops 15 ml BTL (for Artificials Tears) BOTH EYES SCH (11:21)
[2023-02-04] MEDS: PTO:DAPAGLIFLOZIN 10 MG TAB (NF) PO SCH (11:21)
[2023-02-04 14:08] LABS: ABS Eosinophils 0.2 10^3/uL (0.0-0.5); ABS Lymphocytes 0.8 10^3/uL (1.0-4.8); ABS Monocytes 0.6 10^3/uL (0.0-1.1); ABS Neutrophils 4.1 10^3/uL (1.5-7.6); ABS Nucleated RBC 0.01 10^3/ul; Eosinophil % 2.8 %; Hematocrit 24.9 % (38-53); Hemoglobin 8.3 g/dL (13.2-16.3); Lymphocyte % 14.8 %; Mean Corpuscular Hemoglobin 30.6 pg (27-33); Mean Corpuscular Hgb Conc 33.2 g/dL (31-36); Mean Corpuscular Volume 92.1 fL (80-97); Mean Platelet Volume 8.6 fL (7.5-11.2); Nucleated Red Blood Cells % 0.2 %/100WBC (0.0-0.8); Platelet Count 83 10^3/uL (150-450); Red Cell Distribution Width 16.5 % (12-17); White Blood Count 5.7 10^3/uL (3.6-10.2)
[2023-02-04] MEDS: Insulin GLARGINE 100 un/ml 10 ml VIAL SUBCUT SCH (21:56)
[2023-02-05] MEDS: Venlafaxine XR 75 mg PO SCH (08:02)
[2023-02-05] MEDS: Lactulose 30 ml UDC PO SCH ×5 (08:06→22:40)
[2023-02-05] MEDS ORDERED: Influenza vaccine *QUAD* *2023-24* 0.5 ML SYRINGE IM ONE (09:00)
[2023-02-05] MEDS ORDERED: Pneumococcal Vac 23-Polyvalent IM ONE (09:00)
[2023-02-05] MEDS: Timolol 0.5% OPTH.SOL BTL BOTH EYES SCH (09:43)
[2023-02-05] MEDS: Dextran 70/Hypromellose Tears Eye Drops 15 ml BTL (for Artificials Tears) BOTH EYES SCH (09:43)
[2023-02-05 10:01] LABS: Hematocrit 22.5 % (38-53); Hemoglobin 7.6 g/dL (13.2-16.3); Mean Corpuscular Hemoglobin 30.8 pg (27-33); Mean Corpuscular Hgb Conc 33.8 g/dL (31-36); Mean Platelet Volume 8.4 fL (7.5-11.2); Platelet Count 74 10^3/uL (150-450); Red Blood Count 2.47 10^6/uL (4.06-5.63); Red Cell Distribution Width 16.5 % (12-17); White Blood Count 6.3 10^3/uL (3.6-10.2)
[2023-02-05] MEDS: PTO:DAPAGLIFLOZIN 10 MG TAB (NF) PO SCH (14:22)
[2023-02-05] MEDS: Insulin GLARGINE 100 un/ml 10 ml VIAL SUBCUT SCH (22:40)
[2023-02-06 06:19] LABS: ABS Eosinophils 0.1 10^3/uL (0.0-0.5); ABS Lymphocytes 0.5 10^3/uL (1.0-4.8); ABS Monocytes 0.5 10^3/uL (0.0-1.1); ABS Neutrophils 2.7 10^3/uL (1.5-7.6); ABS Nucleated RBC 0.01 10^3/ul; Eosinophil % 3.5 %; Hematocrit 22.2 % (38-53); Hemoglobin 7.6 g/dL (13.2-16.3); Lymphocyte % 12.3 %; Mean Corpuscular Hemoglobin 30.5 pg (27-33); Mean Corpuscular Hgb Conc 34.3 g/dL (31-36); Mean Corpuscular Volume 88.8 fL (80-97); Mean Platelet Volume 8.2 fL (7.5-11.2); Nucleated Red Blood Cells % 0.2 %/100WBC (0.0-0.8); Platelet Count 54 10^3/uL (150-450); Red Blood Count 2.49 10^6/uL (4.06-5.63); Red Cell Distribution Width 16.2 % (12-17); White Blood Count 3.9 10^3/uL (3.6-10.2)
[2023-02-06 06:32] LABS: Albumin 2.8 g/dL (3.2-5.2); Creatinine, Serum 0.82 mg/dL (0.67-1.17); Globulin 2.8 g/dL (2-4); Magnesium 1.9 mg/dL (1.9-2.7); Potassium 3.5 mmol/L (3.5-5.0); Total Bilirubin 3.1 mg/dL (0.2-1.0); Total Protein 5.6 g/dL (6.4-8.9); eGFR CKD-EPI 96.9 (>60)
[2023-02-06] MEDS: Dextran 70/Hypromellose Tears Eye Drops 15 ml BTL (for Artificials Tears) BOTH EYES SCH (11:00)
[2023-02-06] MEDS: Lactulose 30 ml UDC PO SCH ×4 (11:00→23:15)
[2023-02-06] MEDS: Timolol 0.5% OPTH.SOL BTL BOTH EYES SCH (11:07)
[2023-02-06] MEDS: Venlafaxine XR 75 mg PO SCH (11:14)
[2023-02-06] MEDS: PTO:DAPAGLIFLOZIN 10 MG TAB (NF) PO SCH (11:15)
[2023-02-06] MEDS ORDERED: Potassium Chlor 20 meq TAB.ER PO ONE (19:05)
[2023-02-06] MEDS ORDERED: Insulin GLARGINE 100 un/ml 10 ml VIAL SUBCUT SCH (21:00)
[2023-02-06] MEDS: Insulin GLARGINE 100 un/ml 10 ml VIAL SUBCUT SCH (23:14)
[2023-02-07 08:09] LABS: ABS Eosinophils 0.2 10^3/uL (0.0-0.5); ABS Lymphocytes 0.5 10^3/uL (1.0-4.8); ABS Monocytes 0.7 10^3/uL (0.0-1.1); ABS Neutrophils 4.2 10^3/uL (1.5-7.6); ABS Nucleated RBC 0.01 10^3/ul; Hematocrit 27.4 % (38-53); Hemoglobin 9.4 g/dL (13.2-16.3); Lymphocyte % 8.9 %; Mean Corpuscular Hemoglobin 29.8 pg (27-33); Mean Corpuscular Hgb Conc 34.3 g/dL (31-36); Mean Corpuscular Volume 86.9 fL (80-97); Mean Platelet Volume 8.2 fL (7.5-11.2); Nucleated Red Blood Cells % 0.1 %/100WBC (0.0-0.8); Platelet Count 68 10^3/uL (150-450); Red Blood Count 3.15 10^6/uL (4.06-5.63); Red Cell Distribution Width 17.5 % (12-17); White Blood Count 5.6 10^3/uL (3.6-10.2)
[2023-02-07 08:15] LABS: Calcium 8.3 mg/dL (8.6-10.3); Creatinine, Serum 0.88 mg/dL (0.67-1.17); Magnesium 1.8 mg/dL (1.9-2.7); Potassium 3.8 mmol/L (3.5-5.0); Total Bilirubin 2.3 mg/dL (0.2-1.0); eGFR CKD-EPI 94.8 (>60)
[2023-02-07] MEDS: Lactulose 30 ml UDC PO SCH ×4 (10:50→21:56)
[2023-02-07] MEDS: Venlafaxine XR 75 mg PO SCH (10:50)
[2023-02-07] MEDS: Timolol 0.5% OPTH.SOL BTL BOTH EYES SCH (10:52)
[2023-02-07] MEDS: Dextran 70/Hypromellose Tears Eye Drops 15 ml BTL (for Artificials Tears) BOTH EYES SCH (10:52)
[2023-02-07] MEDS: PTO:DAPAGLIFLOZIN 10 MG TAB (NF) PO SCH (10:52)
[2023-02-07] MEDS: Insulin GLARGINE 100 un/ml 10 ml VIAL SUBCUT SCH (22:45)
[2023-02-08 07:47] VITALS: BP 95/58
[2023-02-08 09:03] LABS: Hematocrit 29.7 % (38-53); Hemoglobin 9.9 g/dL (13.2-16.3); Mean Corpuscular Hemoglobin 29.6 pg (27-33); Mean Corpuscular Hgb Conc 33.4 g/dL (31-36); Mean Corpuscular Volume 88.7 fL (80-97); Mean Platelet Volume 8.6 fL (7.5-11.2); Platelet Count 69 10^3/uL (150-450); Red Blood Count 3.34 10^6/uL (4.06-5.63); Red Cell Distribution Width 17.9 % (12-17); White Blood Count 5.2 10^3/uL (3.6-10.2)
[2023-02-08 09:23] LABS: Calcium 8.2 mg/dL (8.6-10.3); Creatinine, Serum 0.93 mg/dL (0.67-1.17); Globulin 2.9 g/dL (2-4); Potassium 3.6 mmol/L (3.5-5.0); Total Bilirubin 2.1 mg/dL (0.2-1.0); Total Protein 5.9 g/dL (6.4-8.9); eGFR CKD-EPI 90.6 (>60)
[2023-02-08] MEDS: Venlafaxine XR 75 mg PO SCH (10:33)
[2023-02-08] MEDS: PTO:DAPAGLIFLOZIN 10 MG TAB (NF) PO SCH (10:42)
[2023-02-08] MEDS: Lactulose 30 ml UDC PO SCH (10:49)
[2023-02-08] MEDS: Timolol 0.5% OPTH.SOL BTL BOTH EYES SCH (10:50)
[2023-02-08] MEDS: Dextran 70/Hypromellose Tears Eye Drops 15 ml BTL (for Artificials Tears) BOTH EYES SCH (10:50)
== END 2023-02-08 13:30 | DRG 442 ==
LOC: ED 13:33 → EDHOLD 19:14 → SUATTDRO 19:14 → MEDTELE 02-02 11:30
PROVIDERS: ADMIT Internal Medicine; ATTEND Internal Medicine

== ENCOUNTER 2023-02-25 20:25 | Inpatient (IN) ==
[2023-02-25 21:58] LABS: ABS Basophils 0.1 10^3/uL (0.0-0.1); ABS Eosinophils 0.2 10^3/uL (0.0-0.5); ABS Lymphocytes 0.9 10^3/uL (1.0-4.8); ABS Monocytes 0.7 10^3/uL (0.0-1.1); ABS Nucleated RBC 0.02 10^3/ul; Eosinophil % 3.3 %; Hematocrit 36.1 % (38-53); Hemoglobin 11.9 g/dL (13.2-16.3); Lymphocyte % 15.6 %; Mean Corpuscular Hemoglobin 29.1 pg (27-33); Mean Corpuscular Hgb Conc 33.1 g/dL (31-36); Mean Corpuscular Volume 88.1 fL (80-97); Mean Platelet Volume 8.4 fL (7.5-11.2); Nucleated Red Blood Cells % 0.3 %/100WBC (0.0-0.8); Platelet Count 62 10^3/uL (150-450); Red Cell Distribution Width 18.3 % (12-17)
[2023-02-25 22:12] LABS: Albumin 3.2 g/dL (3.2-5.2); Albumin/Globulin Ratio 0.9 (1-3); C Reactive Protein 6.35 mg/L (<8.01); Calcium 9.5 mg/dL (8.6-10.3); Globulin 3.4 g/dL (2-4); Magnesium 2.5 mg/dL (1.9-2.7); Potassium 3.3 mmol/L (3.5-5.0); Total Bilirubin 2.9 mg/dL (0.2-1.0); Total Protein 6.6 g/dL (6.4-8.9)
[2023-02-25] MEDS ORDERED: Lactated Ringers 1000 ml BAG 1,000 ML IV ONE (22:14)
[2023-02-25 22:48] LABS: High Sensitivity Troponin 1 Hr 26 pg/mL (<20)
[2023-02-25] MEDS ORDERED: Lactulose 30 ml UDC PO ONE (23:54)
[2023-02-26 00:10] LABS: Creatinine, Serum 2.33 mg/dL (0.67-1.17); eGFR CKD-EPI 30.1 (>60)
[2023-02-26] MEDS ORDERED: Potassium Chlor 20 meq TAB.ER PO ONE (01:53)
[2023-02-26 02:33] LABS: INR 1.39 (0.83-1.13)
[2023-02-26] MEDS ORDERED: Lactated Ringers 1000 ml BAG 500 ML IV ONE (02:36)
[2023-02-26] MEDS ORDERED: Lactulose 300 ML for PR 200 GM/300 ML BTL PR SCH (03:00)
[2023-02-26] MEDS ORDERED: Dextrose 50% Syringe 50 ml 25 GM/50 ML SYRINGE IV PUSH PRN (03:22)
[2023-02-26] MEDS ORDERED: Albuterol HFA INHALER 8 gm MDI INH PRN (03:23)
[2023-02-26] MEDS: KCL 20 MEQ/100 ML IVPREMIX 20 MEQ/100 ML BAG IV SCH ×2 (03:39→06:05)
[2023-02-26] MEDS: Lactulose 30 ml UDC PO SCH ×4 (04:26→12:39)
[2023-02-26 06:23] LABS: ABS Eosinophils 0.2 10^3/uL (0.0-0.5); ABS Lymphocytes 0.8 10^3/uL (1.0-4.8); ABS Monocytes 0.8 10^3/uL (0.0-1.1); ABS Neutrophils 3.6 10^3/uL (1.5-7.6); ABS Nucleated RBC 0.01 10^3/ul; Eosinophil % 3.3 %; Hematocrit 33.5 % (38-53); Hemoglobin 11.1 g/dL (13.2-16.3); Lymphocyte % 14.8 %; Mean Corpuscular Hemoglobin 29.3 pg (27-33); Mean Corpuscular Volume 88.8 fL (80-97); Mean Platelet Volume 8.3 fL (7.5-11.2); Nucleated Red Blood Cells % 0.1 %/100WBC (0.0-0.8); Platelet Count 60 10^3/uL (150-450); Red Blood Count 3.77 10^6/uL (4.06-5.63); Red Cell Distribution Width 18.1 % (12-17); White Blood Count 5.5 10^3/uL (3.6-10.2)
[2023-02-26 06:41] LABS: Albumin 2.9 g/dL (3.2-5.2); Albumin/Globulin Ratio 0.9 (1-3); Calcium 9.1 mg/dL (8.6-10.3); Creatinine, Serum 2.4 mg/dL (0.67-1.17); Globulin 3.1 g/dL (2-4); Potassium 3.6 mmol/L (3.5-5.0); Total Bilirubin 2.9 mg/dL (0.2-1.0)
[2023-02-26 06:58] LABS: Urine Appearance Turbid; Urine Bilirubin Negative (Negative); Urine Blood 1+ (Negative); Urine Color Amber; Urine Glucose Negative (Negative); Urine Ketones Negative (Negative); Urine Nitrite Negative (Negative); Urine Protein 1+(30 mg/dL) (Negative); Urine Urobilinogen Positive (Negative)
[2023-02-26 07:19] LABS: Urine Bacteria Absent (Absent); Urine Red Blood Cell 3+(>10/hpf) (Absent); Urine White Blood Cell 3+(>20/hpf) (Absent)
[2023-02-26] MEDS ORDERED: Venlafaxine 75 mg CAP (NF) PO SCH (09:00)
[2023-02-26 10:28] LABS: C Reactive Protein 5.91 mg/L (<8.01)
[2023-02-26] MEDS: Venlafaxine XR 75 mg PO SCH ×2 (10:47→10:54)
[2023-02-26] MEDS: Timolol 0.5% OPTH.SOL BTL BOTH EYES SCH (11:16)
[2023-02-26] MEDS: Enoxaparin 40 MG/0.4 ML SYR SUBCUT SCH (15:49)
[2023-02-26 15:58] LABS: TSH Ultra Thyroid Stim Horm 2.51 mcIU/mL (0.34-5.60)
[2023-02-26 16:09] LABS: Vitamin B12 > 1450 pg/mL (180-914)
[2023-02-26 17:04] LABS: Urine Osmo 363 mOsm/kg (150-1150)
[2023-02-26 17:31] LABS: Folate 17.71 ng/mL (5.90-24.80)
[2023-02-26] MEDS: Lactulose 300 ML for PR 200 GM/300 ML BTL PR SCH ×2 (17:48→21:50)
[2023-02-26] MEDS: Lactated Ringers 1000 ml BAG 1,000 ML IV SCH (17:58)
[2023-02-26] MEDS ORDERED: Senna/Docusate 8.6/50 mg (NF) TAB PO SCH (21:00)
[2023-02-26] MEDS: Senna TAB 8.6 mg TAB PO SCH (21:51)
[2023-02-27] MEDS: Lactated Ringers 1000 ml BAG 1,000 ML IV SCH ×2 (02:25→10:51)
[2023-02-27] MEDS ORDERED: Lactulose 30 ml UDC PO SCH (09:00)
[2023-02-27] MEDS: Venlafaxine XR 75 mg PO SCH (09:29)
[2023-02-27] MEDS: Lactulose 30 ml UDC PO SCH ×3 (09:29→21:35)
[2023-02-27] MEDS: Timolol 0.5% OPTH.SOL BTL BOTH EYES SCH (13:55)
[2023-02-27] MEDS: cefTRIAXone 1 gm/50 mL D5W 1 GM/50 ML BAG IV SCH (14:45)
[2023-02-27 15:12] LABS: Albumin 2.8 g/dL (3.2-5.2); Calcium 8.7 mg/dL (8.6-10.3); Creatinine, Serum 2.36 mg/dL (0.67-1.17); Globulin 2.9 g/dL (2-4); Magnesium 2.1 mg/dL (1.9-2.7); Potassium 3.4 mmol/L (3.5-5.0); Total Bilirubin 2.2 mg/dL (0.2-1.0); Total Protein 5.7 g/dL (6.4-8.9); eGFR CKD-EPI 29.6 (>60)
[2023-02-27] MEDS ORDERED: Potassium Chloride LIQUID 20 MEQ/15 ML LIQUID PO ONE (15:39)
[2023-02-27 15:42] LABS: ABS Eosinophils 0.1 10^3/uL (0.0-0.5); ABS Lymphocytes 0.6 10^3/uL (1.0-4.8); ABS Monocytes 0.5 10^3/uL (0.0-1.1); ABS Neutrophils 2.5 10^3/uL (1.5-7.6); ABS Nucleated RBC 0.01 10^3/ul; Eosinophil % 3.5 %; Hematocrit 30.1 % (38-53); Hemoglobin 10.1 g/dL (13.2-16.3); Lymphocyte % 16.7 %; Mean Corpuscular Hemoglobin 29.6 pg (27-33); Mean Corpuscular Hgb Conc 33.5 g/dL (31-36); Mean Corpuscular Volume 88.6 fL (80-97); Mean Platelet Volume 8.9 fL (7.5-11.2); Nucleated Red Blood Cells % 0.4 %/100WBC (0.0-0.8); Platelet Count 42 10^3/uL (150-450); Red Blood Count 3.39 10^6/uL (4.06-5.63); Red Cell Distribution Width 18.2 % (12-17); White Blood Count 3.7 10^3/uL (3.6-10.2)
[2023-02-27 16:09] LABS: Urine Alcohol Negative mg/dL (Cutoff: 10); Urine Barbiturates Negative; Urine Benzodiazepines Negative; Urine Cocaine Negative; Urine Methadone Negative (Negative); Urine Opiates Negative (Negative); Urine Phencyclidine Negative ng/mL (Cutoff: 25); Urine Tetrahydrocannabinol Negative ng/mL (Cutoff: 50)
[2023-02-27] MEDS: Enoxaparin 40 MG/0.4 ML SYR SUBCUT SCH (16:11)
[2023-02-27] MEDS: Docusate LIQ 100 MG/10 ML UDC PO SCH (21:35)
[2023-02-27] MEDS: Senna TAB 8.6 mg TAB PO SCH (21:35)
[2023-02-28 08:11] LABS: ABS Eosinophils 0.1 10^3/uL (0.0-0.5); ABS Lymphocytes 0.6 10^3/uL (1.0-4.8); ABS Monocytes 0.6 10^3/uL (0.0-1.1); ABS Neutrophils 2.5 10^3/uL (1.5-7.6); ABS Nucleated RBC 0.01 10^3/ul; Eosinophil % 3.4 %; Hematocrit 31.9 % (38-53); Hemoglobin 10.5 g/dL (13.2-16.3); Lymphocyte % 14.6 %; Mean Corpuscular Hemoglobin 29.2 pg (27-33); Mean Corpuscular Hgb Conc 32.8 g/dL (31-36); Mean Corpuscular Volume 88.9 fL (80-97); Mean Platelet Volume 8.6 fL (7.5-11.2); Nucleated Red Blood Cells % 0.2 %/100WBC (0.0-0.8); Platelet Count 40 10^3/uL (150-450); Red Blood Count 3.58 10^6/uL (4.06-5.63); Red Cell Distribution Width 18.1 % (12-17); White Blood Count 3.9 10^3/uL (3.6-10.2)
[2023-02-28] MEDS: Venlafaxine XR 75 mg PO SCH (08:20)
[2023-02-28] MEDS: Lactulose 30 ml UDC PO SCH ×3 (08:20→20:27)
[2023-02-28] MEDS: Timolol 0.5% OPTH.SOL BTL BOTH EYES SCH (08:21)
[2023-02-28 08:23] LABS: Albumin 2.7 g/dL (3.2-5.2); Albumin/Globulin Ratio 0.9 (1-3); Calcium 8.7 mg/dL (8.6-10.3); Creatinine, Serum 2.22 mg/dL (0.67-1.17); Potassium 3.5 mmol/L (3.5-5.0); Total Protein 5.7 g/dL (6.4-8.9); eGFR CKD-EPI 31.9 (>60)
[2023-02-28 09:11] LABS: Magnesium 2.1 mg/dL (1.9-2.7)
[2023-02-28] MEDS ORDERED: Lactated Ringers 1000 ml BAG 1,000 ML IV SCH (10:00)
[2023-02-28 12:52] LABS: Urine Osmo 395 mOsm/kg (150-1150)
[2023-02-28] MEDS: cefTRIAXone 1 gm/50 mL D5W 1 GM/50 ML BAG IV SCH (14:05)
[2023-02-28] MEDS: Enoxaparin 40 MG/0.4 ML SYR SUBCUT SCH (14:06)
[2023-02-28] MEDS ORDERED: KCL 20 MEQ/100 ML IVPREMIX 20 MEQ/100 ML BAG IV ONE (16:42)
[2023-02-28] MEDS ORDERED: Magnesium Sulfate IV 1GM/100ML 1 GM/100 ML BAG IV ONE (16:43)
[2023-02-28 17:12] LABS: Urine Creatinine Concentration 105.87 mg/dL (20.00-370.00)
[2023-02-28] MEDS: Senna TAB 8.6 mg TAB PO SCH (20:27)
[2023-02-28] MEDS: Docusate LIQ 100 MG/10 ML UDC PO SCH (20:28)
[2023-03-01] MEDS: Lactulose 30 ml UDC PO SCH ×3 (08:51→21:05)
[2023-03-01] MEDS: Timolol 0.5% OPTH.SOL BTL BOTH EYES SCH (08:51)
[2023-03-01] MEDS: Venlafaxine XR 75 mg PO SCH (08:51)
[2023-03-01] MEDS ORDERED: Vancomycin 1,250 MG in NS 0.9% 250 ml 250 ML IVPB ONE (10:29)
[2023-03-01] MEDS ORDERED: Vancomycin per Pharmacy 1 EA NOTE FOLLOW UP PRN (10:58)
[2023-03-01 11:09] LABS: Hemoglobin 10.7 g/dL (13.2-16.3); Mean Corpuscular Hemoglobin 29.7 pg (27-33); Mean Corpuscular Hgb Conc 33.5 g/dL (31-36); Mean Corpuscular Volume 88.7 fL (80-97); Mean Platelet Volume 8.8 fL (7.5-11.2); Platelet Count 41 10^3/uL (150-450); Red Blood Count 3.61 10^6/uL (4.06-5.63); Red Cell Distribution Width 18.2 % (12-17); White Blood Count 4.4 10^3/uL (3.6-10.2)
[2023-03-01 11:22] LABS: Calcium 8.5 mg/dL (8.6-10.3); Creatinine, Serum 1.83 mg/dL (0.67-1.17); Potassium 3.6 mmol/L (3.5-5.0); eGFR CKD-EPI 40.2 (>60)
[2023-03-01] MEDS ORDERED: Albumin Human 25% 25 GM/100 ML BTL IV ONE (12:24)
[2023-03-01] MEDS: Albumin Human 25% 25 GM/100 ML BTL IV SCH ×3 (13:35→15:34)
[2023-03-01] MEDS: Docusate LIQ 100 MG/10 ML UDC PO SCH (21:04)
[2023-03-01] MEDS: Senna TAB 8.6 mg TAB PO SCH (21:06)
[2023-03-02] MEDS ORDERED: Vancomycin Random Level NOTE FOLLOW UP ONE (06:00)
[2023-03-02 06:39] LABS: ABS Eosinophils 0.1 10^3/uL (0.0-0.5); ABS Lymphocytes 0.3 10^3/uL (1.0-4.8); ABS Monocytes 0.3 10^3/uL (0.0-1.1); ABS Neutrophils 1.4 10^3/uL (1.5-7.6); ABS Nucleated RBC 0.01 10^3/ul; Eosinophil % 3.4 %; Hematocrit 25.4 % (38-53); Hemoglobin 8.6 g/dL (13.2-16.3); Lymphocyte % 15.4 %; Mean Corpuscular Hemoglobin 29.7 pg (27-33); Mean Corpuscular Hgb Conc 33.6 g/dL (31-36); Mean Corpuscular Volume 88.2 fL (80-97); Mean Platelet Volume 8.9 fL (7.5-11.2); Nucleated Red Blood Cells % 0.5 %/100WBC (0.0-0.8); Platelet Count 31 10^3/uL (150-450); Red Blood Count 2.88 10^6/uL (4.06-5.63); Red Cell Distribution Width 17.7 % (12-17); Vancomycin Random 7.6 mcg/mL; White Blood Count 2.2 10^3/uL (3.6-10.2)
[2023-03-02 06:40] LABS: Albumin 3.5 g/dL (3.2-5.2); Albumin/Globulin Ratio 1.5 (1-3); Creatinine, Serum 1.54 mg/dL (0.67-1.17); Globulin 2.3 g/dL (2-4); Phosphorus 2.5 mg/dL (2.5-5.0); Potassium 3.3 mmol/L (3.5-5.0); Total Bilirubin 1.7 mg/dL (0.2-1.0); Total Protein 5.8 g/dL (6.4-8.9); eGFR CKD-EPI 49.4 (>60)
[2023-03-02] MEDS: Venlafaxine XR 75 mg PO SCH (08:20)
[2023-03-02] MEDS: Lactulose 30 ml UDC PO SCH ×2 (08:20→14:22)
[2023-03-02] MEDS: KCL 20 MEQ/100 ML IVPREMIX 20 MEQ/100 ML BAG IV SCH ×2 (08:21→12:12)
[2023-03-02] MEDS: Timolol 0.5% OPTH.SOL BTL BOTH EYES SCH (08:21)
[2023-03-02] MEDS ORDERED: Vancomycin 1000 MG in NS 0.9% 250 ML IVPB ONE (09:00)
[2023-03-02 09:57] LABS: INR 1.43 (0.83-1.13)
[2023-03-02 10:00] LABS: Hematocrit 26.1 % (38-53); Hemoglobin 8.9 g/dL (13.2-16.3); Mean Corpuscular Hemoglobin 29.9 pg (27-33); Mean Corpuscular Hgb Conc 34.1 g/dL (31-36); Mean Corpuscular Volume 87.8 fL (80-97); Red Blood Count 2.97 10^6/uL (4.06-5.63); Red Cell Distribution Width 17.8 % (12-17); White Blood Count 3.1 10^3/uL (3.6-10.2)
[2023-03-02 10:03] LABS: Albumin 3.6 g/dL (3.2-5.2); Albumin/Globulin Ratio 1.4 (1-3); Calcium 9.1 mg/dL (8.6-10.3); Creatinine, Serum 1.46 mg/dL (0.67-1.17); Globulin 2.5 g/dL (2-4); Potassium 3.5 mmol/L (3.5-5.0); Total Protein 6.1 g/dL (6.4-8.9); eGFR CKD-EPI 52.7 (>60)
[2023-03-02 10:44] LABS: ABS Eosinophils 0.1 10^3/uL (0.0-0.5); ABS Lymphocytes 0.4 10^3/uL (1.0-4.8); ABS Monocytes 0.4 10^3/uL (0.0-1.1); ABS Neutrophils 2.1 10^3/uL (1.5-7.6); Eosinophil % 3.4 %; Lymphocyte % 13.6 %; Mean Platelet Volume 8.5 fL (7.5-11.2); Platelet Count 38 10^3/uL (150-450)
[2023-03-02 15:00] VITALS: BP 89/47
[2023-03-03] MEDS ORDERED: Vancomycin Random Level NOTE FOLLOW UP ONE (06:00)
== END 2023-03-02 17:35 | DRG 441 ==
LOC: ED 20:25 → EDHOLD 20:25 → SUATTDRO 02-26 01:27 → ICU 02-26 05:57 → SSU 02-26 09:32 → MEDTELE 02-26 09:40 → SSU 03-02 00:11
PROVIDERS: ADMIT Internal Medicine; ATTEND Internal Medicine